=== PATIENT | female | born 1980 | race African-American/Black ===

== ENCOUNTER 2021-07-11 08:25 | Emergency (ER) | payer MEDICAID, OTHER ==
[~2021-07-11] VITALS: Ht 160 cm; Wt 131.5 kg
[2021-07-11 08:42] VITALS: BP 180/99
== END 2021-07-11 10:20 | disposition home or self-care (01) ==
LOC: ER 08:25
DX: M77.8 Other enthesopathies, not elsewhere classified (principal)
CPT/HCPCS: 73030; 81025